=== PATIENT | male | born 1995 | race African-American/Black ===

== ENCOUNTER 2024-09-11 03:03 | Emergency (ER) | payer OTHER ==
[2024-09-11 03:25] VITALS: BMI 23.6
[2024-09-11] MEDS ORDERED: ACETAMINOPHEN 325 MG TABLET (FP) ONE (03:57)
[2024-09-11] MEDS: ACETAMINOPHEN 325 MG TABLET (FP) PO ONE (04:11)
[2024-09-11 04:15] LABS: BASO % 0.3 % (0-2.0); EOS % 0.6 % (0-4.5); HEMATOCRIT 42.6 % (35.4-49); LYMPH % 7.7 % (8-40); MCH 29.7 pg (25.7-33.7); MEAN PLT VOLUME 9.1 fl (7.5-11.1); MONO % 8.4 % (3.8-10.2); PLATELET COUNT 239 10^3/uL (134-434); RBC 4.73 M/mm3 (4.00-5.60); RDW 15.1 % (11.9-15.9); WHITE BLOOD COUNT 15.6 K/mm3 (4.0-10.0)
[2024-09-11 04:35] LABS: POTASSIUM 4.2 mmol/L (3.5-5.1)
[2024-09-11 04:37] LABS: CALCIUM 9.6 mg/dL (8.5-10.1)
[2024-09-11 04:38] LABS: ALBUMIN 3.9 g/dl (3.4-5.0); BLOOD UREA NITROGEN 7.2 mg/dL (7-18)
[2024-09-11] MEDS ORDERED: MORPHINE SULFATE 2 MG/ML SYRINGE ONE (04:38)
[2024-09-11 04:41] LABS: CREATININE 1.2 mg/dL (0.55-1.3)
[2024-09-11 04:42] LABS: BILIRUBIN,TOTAL 0.7 mg/dL (0.2-1); TOT PROT 7.3 g/dl (6.4-8.2)
[2024-09-11] MEDS: morphine SULFATE 4 MG/ML VIAL IVPUSH ONE ×2 (04:43→06:00)
[2024-09-11] MEDS ORDERED: morphine SULFATE 4 MG/ML VIAL ONE (05:55)
[2024-09-11 06:04] VITALS: BP 126/60; PULSE 62; RESP 18; TEMP 98.5
[2024-09-11 06:43] LABS: PH,URINE 7.5 (5.0-8.0); URINE APPEARANCE CLEAR; URINE BILIRUBIN NEGATIVE (NEGATIVE); URINE COLOR YELLOW; URINE GLUCOSE (UA) NEGATIVE (NEGATIVE); URINE KETONE NEGATIVE (NEGATIVE); URINE LEUK ESTERASE 2+ (NEGATIVE); URINE NITRITE NEGATIVE (NEGATIVE); URINE PROTEIN NEGATIVE (NEGATIVE); URINE UROBILINOGEN 0.2 mg/dL (0.2-1.0)
[2024-09-11] MEDS ORDERED: KETOROLAC TROMETHAMINE 15 MG/ML VIAL ONE (10:55)
[2024-09-11] MEDS ORDERED: SULFAMETHOXAZOLE/TRIMETHOPRIM 800MG/160MG D.S. TABLET ONE (10:55)
[2024-09-11] MEDS: KETOROLAC TROMETHAMINE 15 MG/ML VIAL IVPUSH ONE (11:00)
[2024-09-11] MEDS: SULFAMETHOXAZOLE/TRIMETHOPRIM 800MG/160MG D.S. TABLET PO ONE (11:01)
== END 2024-09-11 12:26 | disposition home or self-care (01) ==
LOC: JER 03:03
PROC: 3E0333Z Introduction of Anti-inflammatory into Peripheral Vein, Percutaneous Approach (ICD-10-PCS; principal; 2024-09-11)
PROC: 3E033NZ Introduction of Analgesics, Hypnotics, Sedatives into Peripheral Vein, Percutaneous Approach (ICD-10-PCS; 2024-09-11)
PROC: 3E033NZ Introduction of Analgesics, Hypnotics, Sedatives into Peripheral Vein, Percutaneous Approach (ICD-10-PCS; 2024-09-11)
DX: N50.811 Right testicular pain (principal); N39.0 Urinary tract infection, site not specified; R10.31 Right lower quadrant pain; R11.2 Nausea with vomiting, unspecified
CPT/HCPCS: 36415; 74177-TC; 76870-TC; 80053; 81003; 85025; 87086; 99285-25; Q9967